=== PATIENT | female | born 1965 | race American Indian/Alaskan Native ===

== ENCOUNTER 2021-04-16 10:09 | Emergency (ER) | payer MEDICAID ==
[2021-04-16 12:26] VITALS: BP 189/99
--- NOTE | 2021-04-16 12:44 | Emergency Department Report ---
ED Eye Problem HPI - General Chief complaint: Eye Problems Stated complaint: LEFT EYE PAIN Time Seen by Provider: 04/16/21 12:27 Source: patient Mode of arrival: Ambulatory Limitations: No Limitations - History of Present Illness Initial comments: Patient is a 55-year-old female presents emergency room complaints of a rash to her left upper face that began 5 days ago. She states that she also has pain in her left eye and blurry vision. She states that she is still able to see but it appears blurry. She has not had a shingles vaccine. She denies any fever, cough, diarrhea, numbness, weakness, difficulty moving the face. Past medical history of asthma. No allergies to medications. No history of diabetes. She states that she saw her primary care doctor 2 days ago and was diagnosed with a sinus infection and placed on a Z-Kalpesh. - Related Data Allergies Allergy/AdvReac Type Severity Reaction Status Date / Time No Known Allergies Allergy Unverified 04/16/21 12:26 ED Review of Systems ROS: Stated complaint: LEFT EYE PAIN Other details as noted in HPI Comment: All other systems reviewed and negative ED Past Medical Hx - Past Medical History Previous Medical History?: Yes Hx Asthma: Yes - Surgical History Past Surgical History?: Yes Additional Surgical History: Right knee - Social History Smoking Status: Former Smoker Substance Use Type: None ED Physical Exam - General Limitations: No Limitations General appearance: alert, in no apparent distress - Eye Eye exam: Present: PERRL, EOMI, conjunctival injection (left) - ENT ENT exam: Present: mucous membranes moist - Respiratory Respiratory exam: Absent: respiratory distress, accessory muscle use - Neurological Exam Neurological exam: Present: alert, oriented X3 - Psychiatric Psychiatric exam: Present: normal affect, normal mood - Skin Skin exam: Present: warm, dry, other (erythematous maculopapular rash in a dermatomal distribution present to the left forehead, left eyelid, left nose, and below the left eye) ED Course Vital Signs 04/16/21 12:15 Temperature 99.4 F Pulse Rate 71 Respiratory 20 Rate Blood Pressure 189/99 O2 Sat by Pulse 100 Oximetry - Consultations Consultation #1: 04/16/21 12:[address] Turcios, ER attending who advised to speak with ophthalmology, we do not have ophthalmology on-call, will consult [facility] 04/16/21 12:48 Spoke with the [facility] transfer line, will call back with ophthalmology consultation 04/16/21 13:[address] Velázquez, ophthalmology at [facility], he advised to transfer for ophthalmology evaluation, he advised to give 1000 mg oral valacyclovir, he advised ED to ED transfer, he will accept pt for transfer and resume care, advised to transfer to [facility] 04/16/21 13:06 [facility] transfer line spoke with Dr. Vaughn, ER attending doctor at [facility], will accept and resume care of patient, will accept transfer ED Medical Decision Making - Medical Decision Making Patient is a 55-year-old female presents emergency room complaints of a rash to her left upper face that began 5 days ago. She states that she also has pain in her left eye and blurry vision. She states that she is still able to see but it appears blurry. She has not had a shingles vaccine. She denies any fever, cough, diarrhea, numbness, weakness, difficulty moving the face. Past medical history of asthma. No allergies to medications. No history of diabetes. She states that she saw her primary care doctor 2 days ago and was diagnosed with a sinus infection and placed on a Z-Kalpesh. Vitals with elevated blood pressure, otherwise stable. On exam:erythematous maculopapular rash in a dermatomal distribution present to the left forehead, left eyelid, left nose, and below the left eye, left conjunctival injection. Examination appears consistent with herpes zoster with ophthalmic complication. Spoke with Dr. Turcios, ER attending who advised to speak with ophthalmology, we do not have ophthalmology on-call, will consult [facility]. Spoke with Dr. Velázquez, ophthalmology at [facility], he advised to transfer for ophthalmology evaluation, he advised to give 1000 mg oral valacyclovir, he advised ED to ED transfer, he will accept pt for transfer and resume care, advised to transfer to [facility]. [facility] transfer line spoke with Dr. Vaughn, ER attending doctor at [facility], will accept and resume care of patient, will accept transfer. Patient agreeable with transfer and transported via EMS. Critical care attestation.: If time is entered above; I have spent that time in minutes in the direct care of this critically ill patient, excluding procedure time. ED Disposition Clinical Impression: Herpes zoster with ophthalmic complication Qualifiers: Herpes zoster ocular complication detail: unspecified herpes zoster eye disease Qualified Code(s): B02.30 - Zoster ocular disease, unspecified Disposition: DC/TX-70 ANOTHER TYPE HLTHCARE Is pt being admited?: No Does the pt Need Aspirin: No Condition: Stable Referrals: JOHANN KHAN MD [Primary Care Provider] - 3-5 Days Time of Disposition: 13:09 Print Language: AFGHAN
[2021-04-16] MEDS ORDERED: HYDROcodone/ACETAMINOPHEN 5-325 MG TAB PO ONE (13:25)
[2021-04-16] MEDS ORDERED: valACYclovir 500 MG TAB PO ONE (13:30)
== END 2021-04-16 15:15 | disposition other institution (70) ==
LOC: ED 10:09
DX: B02.30 Zoster ocular disease, unspecified (principal); J45.909 Unspecified asthma, uncomplicated; Z98.890 Other specified postprocedural states; Z87.891 Personal history of nicotine dependence